=== PATIENT | female | born 1995 | race African-American/Black ===

== ENCOUNTER 2017-06-08 06:50 | Inpatient (IN) | payer OTHER ==
[2017-06-08] MEDS: DEXTROSE 5%-LACTATED RINGERS 1,000 ML IV SCH (07:25)
[2017-06-08] MEDS: OXYTOCIN 20 UNITS in 0.9% NS 20 UNIT/1,000 ML INFUS.BAG IV SCH ×2 (08:00→09:15)
[2017-06-08] MEDS ORDERED: METHYLERGONOVINE MALEATE 0.2 MG/1 ML AMP IM PRN (08:14)
[2017-06-08] MEDS ORDERED: BISACODYL 10 MG SUPP.RECT RC PRN (08:14)
[2017-06-08] MEDS ORDERED: oxyCODONE HCL 5 MG TABLET PO PRN (08:14)
[2017-06-08] MEDS ORDERED: WITCH HAZEL 50% (TUCKS) 40 PAD/JAR PAD TP PRN (08:14)
[2017-06-08] MEDS ORDERED: BENZOCAINE 28 GM HEMORRHOIDAL OINTMENT TP PRN (08:14)
[2017-06-08] MEDS ORDERED: BENZOCAINE 20% 57 GM BOTTLE TP PRN (08:14)
[2017-06-08] MEDS ORDERED: D5W-LR W/ 20 UNITS OXYTOCIN 20 UNIT/1,000 ML INFUS.BAG IV SCH ×2 (08:15→09:30)
--- NOTE | 2017-06-08 08:22 | HP ---
Past Medical History - Primary Care Physician PCP:: Jatin Lizarraga - Admission Chief Complaint: 38 weeks, labor History of Present Illness: 21 yo f , 38 weeks c/o contraction, no rom, no bleeding, cx full 100 vx 0 mi, fhr cat1, contraction q 2 min History Source: Patient Limitations to Obtaining History: No Limitations - Past Medical History ...: 3 ...Para: 1 ...Term: 1 ...: 0 ...Spon : 0 ...Induced : 1 ...EDC by Dates: 06/19/17 ...EDC by Sono: 07/06/17 - Past Surgical History Hx Myomectomy: No Hx Transabdominal Cerclage: No - Smoking History Have you smoked in the past 12 months: No - Alcohol/Substance Use Hx Alcohol Use: No History of Substance Use: reports: None - Social History History of Recent Travel: No Review of Systems - Review of Systems Constitutional: reports: No Symptoms Eyes: reports: No Symptoms HENT: reports: No Symptoms Neck: reports: No Symptoms Cardiovascular: reports: No Symptoms Respiratory: reports: No Symptoms Gastrointestinal: reports: No Symptoms Genitourinary: reports: No Symptoms Breasts: reports: No Symptoms Reported Musculoskeletal: reports: No Symptoms Integumentary: reports: No Symptoms Neurological: reports: No Symptoms Endocrine: reports: No Symptoms Hematology/Lymphatic: reports: No Symptoms Psychiatric: reports: No Symptoms Physical Exam - Maternity Constitutional: Yes: Well Nourished, No Distress, Calm Eyes: Yes: WNL, Conjunctiva Clear, EOM Intact HENT: Yes: WNL, Atraumatic, Normocephalic Neck: Yes: WNL, Supple, Trachea Midline Cardiovascular: Yes: WNL, Regular Rate and Rhythm Breast(s): Yes: WNL - Abdominal Exam/OB Fundal Height: 38 Number of Fetuses: Single Presentation: Vertex Contractions: Yes Regularity: Regular Monitor Mode: External Heart Rate Location: [facility] Category: I Accelerations: Uniform Decelerations: None - Vaginal Exam/OB Vaginal Bleediing: Bloody Show Speculum Exam: No Dilatation (cm): full Effacement (%): 100 Amniotic Membrane Status: Bulging Presentation: Vertex/Position Station: 0 - Physical Exam Musculoskeletal: Yes: WNL Extremities: Yes: WNL Edema: LLE: Trace, RLE: Trace Deep Tendon Reflex Grade: Normal +2 Hemorrhage Risk Assessment - Risk Factors Medium Risk Factors: Yes: None High Risk Factors: Yes: None Risk Score: 1 Risk Level: Medium Risk Problem List - Problems (1) with 38 completed weeks gestation Code(s): Z3A.38 - 38 WEEKS GESTATION OF (2) Labor established Code(s): SYF5408 - Assessment/Plan admit for delivery
[2017-06-08 08:36] VITALS: BMI 24.9
[2017-06-08 08:36] LABS: VENOUS PH 7.36 (7.32-7.42)
[2017-06-08 08:37] LABS: VENOUS BLOOD GAS HCO3 22.8 meq/L (19-25)
[2017-06-08] MEDS ORDERED: OXYTOCIN 20 UNITS in 0.9% NS 20 UNIT/1,000 ML INFUS.BAG IV ONE (08:50)
[2017-06-08] MEDS: IBUPROFEN 600 MG TABLET (FP) PO PRN ×2 (08:52→17:32)
[2017-06-08] MEDS: ACETAMINOPHEN 325 MG TABLET (FP) PO PRN ×3 (08:53→21:39)
[2017-06-08 08:59] LABS: URINE APPEARANCE SLCLOUDY; URINE BILIRUBIN NEGATIVE (NEGATIVE); URINE BLOOD 2+ (NEGATIVE); URINE COLOR STRAW; URINE GLUCOSE (UA) NEGATIVE (NEGATIVE); URINE KETONE NEGATIVE (NEGATIVE); URINE NITRITE NEGATIVE (NEGATIVE); URINE PROTEIN NEGATIVE (NEGATIVE); URINE UROBILINOGEN NEGATIVE mg/dL (0.2-1.0)
[2017-06-08 08:59] LABS: BASOPHIL 0.7 % (0-2.0); EOSINOPHIL 1.1 % (0-4.5); MCH 25.7 pg (25.7-33.7); MCHC 32.8 g/dl (32.0-36.0); MEAN CELL VOLUME 78.3 fl (80-96); MEAN PLT VOLUME 8.1 fl (7.5-11.1); PLATELET COUNT 256 K/MM3 (134-434); RDW 15.5 % (11.6-15.6); WHITE BLOOD COUNT 11.2 K/mm3 (4.0-10.0)
[2017-06-08 09:00] LABS: URINE LEUK ESTERASE 3+ (NEGATIVE)
[2017-06-08 09:02] LABS: URINE BACTERIA RARE /hpf (NONE SEEN); URINE HYALINE CAST 1 /lpf; URINE RBC 4 /hpf (0-3); URINE WBC 25 /hpf (3-5)
[2017-06-08] MEDS ORDERED: AMPICILLIN - 2 GM in SODIUM CHLORIDE 100 ML IVPB ONE (09:18)
[2017-06-08 09:20] LABS: INR 0.96 (0.82-1.09); PROTHROMBIN TIME (PATIENT) 10.8 SEC (9.98-11.88)
[2017-06-08 09:23] LABS: ACTIVATED PTT 27.8 SECONDS (26.9-34.4)
[2017-06-08 09:47] LABS: URINE MARIJUANA THC NEGATIVE ng/ml (CUTOFF=50)
[2017-06-08 09:48] LABS: ANION GAP 9 (8-16); CALCIUM 8.4 mg/dL (8.5-10.1); CO2 24 mmol/L (21-32); CREATININE 0.7 mg/dL (0.55-1.02); GLUCOSE,RANDOM 59 mg/dL (74-106); SGOT/AST 12 U/L (15-37); SGPT/ALT 18 U/L (12-78); URIC ACID 4.9 mg/dL (2.6-7.2)
[2017-06-08] MEDS ORDERED: PRENATAL VITAMINS W/ FOLIC ACID TABLET (FP) PO SCH (10:00)
[2017-06-08] MEDS ORDERED: PATIENT'S OWN MEDICATION (NON-FORMULARY) (Ferrous Sulfate [Feosol] 325 MG) PO SCH (10:00)
[2017-06-08 12:46] LABS: HIV 1 & 2 AB NEGATIVE; HIV 1 AGp24 NEGATIVE
[2017-06-08 14:35] LABS: URINE LEUK ESTERASE 3+ (NEGATIVE)
[2017-06-08] MEDS: FERROUS SO4 325 MG TABLET (FP) PO SCH ×2 (15:41→17:30)
[2017-06-08] MEDS: PRENATAL VITAMINS W/ FOLIC ACID TABLET (FP) PO SCH (16:18)
[2017-06-09 08:02] LABS: BASOPHIL 0.8 % (0-2.0); EOSINOPHIL 2.1 % (0-4.5); MCH 25.9 pg (25.7-33.7); MCHC 33.4 g/dl (32.0-36.0); MEAN CELL VOLUME 77.6 fl (80-96); NEUTROPHILS 73.4 % (42.8-82.8); PLATELET COUNT 239 K/MM3 (134-434); RDW 15.7 % (11.6-15.6); WHITE BLOOD COUNT 11.7 K/mm3 (4.0-10.0)
[2017-06-09] MEDS: PRENATAL VITAMINS W/ FOLIC ACID TABLET (FP) PO SCH (09:39)
[2017-06-09] MEDS: FERROUS SO4 325 MG TABLET (FP) PO SCH ×2 (09:39→18:10)
[2017-06-09] MEDS: IBUPROFEN 600 MG TABLET (FP) PO PRN (09:41)
[2017-06-09] MEDS: ACETAMINOPHEN 325 MG TABLET (FP) PO PRN (09:41)
[2017-06-09] MEDS ORDERED: SENNOSIDES/DOCUSATE COMBO (SENNA PLUS) TABLET (UD) PO PRN (22:00)
--- NOTE | 2017-06-10 08:18 | PN ---
Progress Note (short form) - Note Progress Note: ppd 1 doing well, no c/o CBC, BMP 06/09/17 07:00 06/08/17 08:33 Last Vital Signs Temp Pulse Resp BP Pulse Ox 97.7 F 60 18 138/88 100 06/09/17 21:00 06/09/17 21:00 06/09/17 21:00 06/09/17 21:00 06/08/17 09:00 abdomen soft , no cva, uterus firnm lochia mild no calf tenderness plan d/c home , tc 4 weeks Problem List - Problems (1) with 38 completed weeks gestation Code(s): Z3A.38 - 38 WEEKS GESTATION OF (2) Labor established Code(s): [id number] -
[2017-06-10] MEDS: PRENATAL VITAMINS W/ FOLIC ACID TABLET (FP) PO SCH (09:14)
[2017-06-10] MEDS: FERROUS SO4 325 MG TABLET (FP) PO SCH (09:14)
[2017-06-10 09:44] VITALS: BP 127/80; PULSE 55; TEMP 98.5
[2017-06-10] MEDS: DEXTROSE 5%-LACTATED RINGERS 1,000 ML IV SCH (10:23)
[2017-06-10] MEDS: OXYTOCIN 20 UNITS in 0.9% NS 20 UNIT/1,000 ML INFUS.BAG IV SCH (10:23)
[2017-06-10] MEDS: ACETAMINOPHEN 325 MG TABLET (FP) PO PRN (10:24)
[2017-06-10] MEDS: IBUPROFEN 600 MG TABLET (FP) PO PRN (10:25)
--- NOTE | 2017-06-13 16:21 | DS ---
Physical Exam-JIGSAWYER Vital Signs: Vital Signs Temperature 98.5 F 06/10/17 09:00 Pulse Rate 55 L 06/10/17 09:00 Respiratory Rate 18 06/10/17 09:00 Blood Pressure 127/80 06/10/17 09:00 O2 Sat by Pulse Oximetry (%) 100 06/08/17 09:00 Constitutional: Yes: Well Nourished, No Distress, Calm Eyes: Yes: WNL, Conjunctiva Clear, EOM Intact HENT: Yes: WNL, Atraumatic, Normocephalic Neck: Yes: WNL, Supple, Trachea Midline Cardiovascular: Yes: WNL, Regular Rate and Rhythm Respiratory: Yes: WNL, Regular, CTA Bilaterally Gastrointestinal: Yes: WNL ...Rectal Exam: Yes: WNL Renal/: Yes: WNL ....Post : Yes: Uterus firm, Uterus non-tender, Slight lochia rubra Breast(s): Yes: WNL Musculoskeletal: Yes: WNL Extremities: Yes: WNL Edema: No Integumentary: Yes: WNL Neurological: Yes: WNL, Alert, Oriented ...Motor Strength: WNL Psychiatric: Yes: WNL, Alert, Oriented Labs: CBC, BMP 06/09/17 07:00 06/08/17 08:33 Delivery - Delivery Vaginal Delivery: Spontaneous (no complication) Type of Anesthesia: None Episiotomy/Laceration: None EBL (cc): 300 Delivery, Single - Stages of Labor Date 1st Stage Initiatied: 06/08/17 Time 1st Stage Initiated: 00:00 Date 2nd Stage Initiated: 06/08/17 Time 2nd Stage Initiated: 07:45 Date of Delivery: 06/08/17 Time of Delivery: 07:56 Time Placenta Delivered: 08:00 Placenta: Yes: Spontaneous - Condition of Assistant Store Director/Fast Food Cook Present: No Gender: Male Weight: 4 lb 15 oz Position: Left, OA Total Hours ROM (Hrs/Mins): 0hrs 15min - 1 Minute Total Score: 9 5 Minutes Total Score: 9 - Feeding Plan Initial Plan: Elected not to breastfeed exclusively throughout hospitalization Discharge Summary Reason For Visit: LABOR Procedures: Principal: Condition: Good - Instructions Diet, Activity, Other Instructions: regular diet, no intercourse, follow up [facility] care 4 weeks Disposition: HOME - Home Medications Comprehensive Discharge Medication List: Ambulatory Orders Iron 0 mg PO DAILY 02/20/17 Vit Calc,Iron,Folic [ Vitamins] 1 each PO DAILY 02/20/17 Ferrous Sulfate [Feosol] 325 mg PO DAILY 06/08/17 Vitamins (Sjr) - 1 tab PO DAILY 06/08/17 Ibuprofen [Motrin -] 600 mg PO QID #28 tablet 06/09/17
== END 2017-06-10 14:15 | disposition home or self-care (01) | DRG 560 ==
LOC: JLDR 06:50 → UNDOADMIN 07:30 → JLDR 07:30 → J3W 10:00
PROVIDERS: ADMIT Obstetrics & Gynecology; ATTEND Obstetrics & Gynecology
PROC: 10E0XZZ Delivery of Products of Conception, External Approach (ICD-10-PCS; principal; 2017-06-08)
DX: O80 Encounter for full-term uncomplicated delivery (principal); Z3A.38 38 weeks gestation of pregnancy; Z37.0 Single live birth
CPT/HCPCS: 36415; 59409; 80048; 80307; 81003; 81015; 82803; 82977; 83010; 84450; 84460; 84550; 85025; 85044; 85610; 85730; 86593; 86850; 86900; 86901; 87389

== ENCOUNTER 2018-08-03 15:33 | Emergency (ER) | payer OTHER ==
[2018-08-03 16:01] VITALS: BMI 25.3
--- NOTE | 2018-08-03 16:56 | PDOC ---
History of Present Illness - General Chief Complaint: Pain Stated Complaint: ABD PAIN / BACK PAIN Time Seen by Provider: 08/03/18 16:56 History Source: Patient Exam Limitations: No Limitations - History of Present Illness Initial Comments: 08/03/18 17:40 23 yo F w/ no sig PMHx comes in c/o diffuse lower abdominal pain, low back pain and rectal pain since yesterday. Also c/o pain on urination, no burning, no frequency/urgency. LMP 1 week ago. Denies yellow-green vaginal discharge, only mild clear discharge, denies STD suspicion, sexually active with her only.. (+)constipation, does not remember her last bowel movement. No h/o abdominal surgery. No fever/chills, no NVD, no known sick contacts, no recent travel. No prior h/o similar symptoms. Pt did not take any meds at home. 08/03/18 17:45 08/03/18 19:13 Past History - Past Medical History Allergies/Adverse Reactions: Allergies Allergy/AdvReac Type Severity Reaction Status Date / Time No Known Allergies Allergy Verified 08/03/18 16:01 Home Medications: Ambulatory Orders NK [No Known Home Medication] 08/03/18 Asthma: No Cancer: No Cardiac Disorders: No COPD: No Diabetes: No HTN: No Seizures: No Thyroid Disease: No - Reproductive History (#): 2 Para: 1 - Suicide/Smoking/Psychosocial Hx Smoking History: Never smoked Have you smoked in the past 12 months: No Number of Cigarettes Smoked Daily: 0 Hx Alcohol Use: No Drug/Substance Use Hx: Yes Substance Use Type: Marijuana Hx Substance Use Treatment: No Review of Systems - Review of Systems Able to Perform ROS?: Yes Constitutional: No: Chills, Fever, Malaise, Night Sweats HEENTM: No: Eye Pain, Recent change in vision, Throat Pain Respiratory: No: Cough, Shortness of Breath Cardiac (ROS): No: Chest Pain, Palpitations, Chest Tightness ABD/GI: Yes: Abdominal cramping. No: Diarrhea, Nausea, Vomiting : No: Dysuria, Hematuria Musculoskeletal: No: Back Pain Integumentary: No: Rash Neurological: No: Headache, Numbness, Dizziness Psychiatric: No: Change in Appetite Endocrine: No: Unexplained Weight Loss *Physical Exam - Vital Signs Last Vital Signs Temp Pulse Resp BP Pulse Ox 100.2 F H 66 18 109/76 99 08/03/18 15:59 08/03/18 15:59 08/03/18 15:59 08/03/18 15:59 08/03/18 15:59 - Physical Exam General Appearance: Yes: Nourished. No: Apparent Distress HEENT: positive: JACQUES, Normal ENT Inspection, Normal Voice. negative: Pale Conjunctivae, Scleral Icterus (R), Scleral Icterus (L) Neck: positive: Supple. negative: Decreased range of motion, Tender midline Respiratory/Chest: positive: Lungs Clear, Normal Breath Sounds. negative: Respiratory Distress, Accessory Muscle Use Cardiovascular: positive: Regular Rhythm, Regular Rate Female Pelvic Exam: positive: discharge (mild yellowish), adnexal tenderness ( bilateral, L>R). negative: CMT Gastrointestinal/Abdominal: positive: Normal Bowel Sounds, Tender ((+)diffuse lower abdominal tenderness, no tenderness at McBurney's point, (-)Psoas sign, (- )Rosving sign, no CVA tenderness), Soft Rectal Exam: positive: normal exam. negative: hemorrhoids Musculoskeletal: positive: Normal Inspection. negative: CVA Tenderness, Decreased Range of Motion Extremity: positive: Normal Capillary Refill, Normal Inspection, Normal Range of Motion. negative: Tender, Pedal Edema Integumentary: positive: Normal Color, Dry. negative: Jaundice, Rash Neurologic: positive: Fully Oriented, Alert, Normal Mood/Affect Moderate Sedation - Procedure Monitoring Vital Signs: Procedure Monitoring Vital Signs Temperature 100.2 F H 08/03/18 15:59 Pulse Rate 66 08/03/18 15:59 Respiratory Rate 18 08/03/18 15:59 Blood Pressure 109/76 08/03/18 15:59 O2 Sat by Pulse Oximetry (%) 99 08/03/18 15:59 ED Treatment Course - LABORATORY CBC & Chemistry Diagram: 08/03/18 17:12 08/03/18 17:13 Medical Decision Making - Medical Decision Making 08/03/18 17:47 23 yo F w/ diffuse lower abdominal pain, back pain, rectal pain, pain on urination (+)constipation. Also w/ L adnexal tenderness on exam. WIll check UA, UCG, will do basic labs, do a flat and upright abdomen , transvaginal sono R/O cyst and reassess. WIll give IV fluids and tylenol for pain. Urine sent for GC/CT 08/03/18 18:51 08/03/18 19:44 Change of shift, care of patient now being assumed by VERONICA Barajas. (+)UTI, pending FUAxray and sono results *DC/Admit/Observation/Transfer Diagnosis at time of Disposition: Urinary tract infection Qualifiers: Urinary tract infection type: acute cystitis Hematuria presence: without hematuria Qualified Code(s): N30.00 - Acute cystitis without hematuria - Referrals - Patient Instructions - Post Discharge Activity
[2018-08-03 18:08] LABS: BASO % 0.4 % (0-2.0); EOS % 0.1 % (0-4.5); HEMATOCRIT 37.9 % (32.4-45.2); HEMOGLOBIN 13.1 GM/dL (10.7-15.3); LYMPH % 6.2 % (8-40); MCH 27.1 pg (25.7-33.7); MCHC 34.6 g/dl (32.0-36.0); MEAN CELL VOLUME 78.3 fl (80-96); NEUT % 87.3 % (42.8-82.8); PLATELET COUNT 283 K/MM3 (134-434); RBC 4.84 M/mm3 (3.60-5.2); RDW 15.7 % (11.6-15.6); WHITE BLOOD COUNT 18.9 K/mm3 (4.0-10.0)
[2018-08-03 18:09] LABS: HCG,QUALITATIVE URINE Negative
[2018-08-03 18:13] LABS: URINE APPEARANCE SLCLOUDY; URINE BILIRUBIN NEGATIVE (<2.0 mg/dL); URINE COLOR YELLOW; URINE GLUCOSE (UA) NEGATIVE (NEGATIVE); URINE KETONE NEGATIVE (NEGATIVE); URINE LEUK ESTERASE 3+ (NEGATIVE); URINE NITRITE NEGATIVE (NEGATIVE); URINE PROTEIN 1+ (NEGATIVE); URINE UROBILINOGEN NEGATIVE mg/dL (0.2-1.0)
[2018-08-03 18:19] LABS: EPI CELLS MODERATE /HPF (FEW); URINE BACTERIA RARE /hpf (NONE SEEN); URINE MUCUS FEW
[2018-08-03 18:41] LABS: ALBUMIN 3.9 g/dl (3.4-5.0); ALK PHOS 102 U/L (45-117); ANION GAP 10 MMOL/L (8-16); BILIRUBIN,TOTAL 0.8 mg/dL (0.2-1); BLOOD UREA NITROGEN 11 mg/dL (7-18); CHLORIDE 105 mmol/L (98-107); CO2 25 mmol/L (21-32); CREATININE 0.9 mg/dL (0.55-1.3); GLUCOSE,RANDOM 95 mg/dL (74-106); LIPASE 81 U/L (73-393); POTASSIUM 3.9 mmol/L (3.5-5.1); SGOT/AST 14 U/L (15-37); SGPT/ALT 19 U/L (13-61); SODIUM 140 mmol/L (136-145)
[2018-08-03] MEDS ORDERED: CEFTRIAXONE 1,000 MG in DEXTROSE 5%-WATER - 50 ML IVPB ONE (20:00)
[2018-08-03] MEDS ORDERED: PHENAZOPYRIDINE HCL 100 MG TABLET (FP) PO ONE (20:04)
[2018-08-03] MEDS ORDERED: KETOROLAC TROMETHAMINE 30 MG/1 ML VIAL IVPUSH ONE (20:05)
[2018-08-03] MEDS ORDERED: KETOROLAC TROMETHAMINE 30 MG/1 ML VIAL ONE (20:11)
[2018-08-03] MEDS ORDERED: PHENAZOPYRIDINE HCL 100 MG TABLET (FP) ONE (20:11)
[2018-08-03] MEDS ORDERED: CEFTRIAXONE 1 GM/50 ML BAG ONE (20:12)
--- NOTE | 2018-08-03 20:28 | PDOC ---
*Physical Exam - Vital Signs Last Vital Signs Temp Pulse Resp BP Pulse Ox 99.5 F 60 18 121/69 99 08/03/18 20:23 08/03/18 20:23 08/03/18 20:23 08/03/18 20:23 08/03/18 20:23 ED Treatment Course - LABORATORY CBC & Chemistry Diagram: 08/03/18 20:55 08/03/18 17:13 - ADDITIONAL ORDERS Additional order review: Laboratory Results 08/03/18 08/03/18 17:53 17:13 Sodium 140 Potassium 3.9 Chloride 105 Carbon Dioxide 25 Anion Gap 10 BUN 11 Creatinine 0.9 Creat Clearance w eGFR > 60 Random Glucose 95 Calcium 9.0 Total Bilirubin 0.8 AST 14 L ALT 19 Alkaline Phosphatase 102 Total Protein 8.0 Albumin 3.9 Lipase 81 Beta HCG, Quant < 1.0 Urine Color Yellow Urine Appearance Slcloudy Urine pH 6.0 Ur Specific [place] 1.020 Urine Protein 1+ H Urine Glucose (UA) Negative Urine Ketones Negative Urine Blood Negative Urine Nitrite Negative Urine Bilirubin Negative Urine Urobilinogen Negative Ur Leukocyte Esterase 3+ H Urine WBC (Auto) 20 Urine RBC (Auto) 10 Ur Epithelial Cells Moderate Urine Bacteria Rare Urine Mucus Few Urine HCG, Qual Negative 08/03/18 17:12 RBC 4.84 MCV 78.3 L MCHC 34.6 RDW 15.7 H MPV 9.0 D Neutrophils % 87.3 H Lymphocytes % 6.2 L D Monocytes % 6.0 Eosinophils % 0.1 D Basophils % 0.4 - Medications Given in the ED: ED Medications Discontinued Medications Generic Name Dose Route Start Last Admin Trade Name Rogelio PRN Reason Stop Dose Admin Ketorolac Tromethamine 30 mg 08/03/18 20:05 08/03/18 20:23 Toradol Injection - IVPUSH 08/03/18 20:06 30 mg ONCE ONE Administration Phenazopyridine HCl 200 mg 08/03/18 20:04 08/03/18 20:22 Pyridium - PO 08/03/18 20:05 200 mg ONCE ONE Administration Medical Decision Making - Medical Decision Making 08/03/18 20:28 Patient Name: TANIA CAMERON THIS IS A PRELIMINARY REPORT FROM [facility] DATE OF SERVICE: 2018-08-03 19:22:52 IMAGES: 50 EXAM: Transvaginal pelvic ultrasound and ovarian duplex REASON FOR EXAM: Left adnexal tenderness COMPARISON: None. FINDINGS: Uterine dimensions are 7.6 x 4.6 x 4.2 cm. Endometrial stripe is normal in thickness measuring 0.7cm. Ovary dimensions are 3.5 x 2.2 x 2.4 cm for the right ovary and 2.9 x 1.4 x 1.8 cm for the left ovary. There is intact blood flow demonstrated to the ovaries. Arterial and venous spectral waveforms demonstrated. There is no evidence of torsion. There is a 1.3 cm right ovarian cyst. There is an additional 1.0 cm left ovarian cyst. There are subcentimeter ovarian follicles bilaterally. There is no free fluid. 08/03/18 20:55 Pt has RLQ pain; she has rebound. SHe has suprapubic pain. She had a temp in the ER. She will be sent for a CT abd/pelvis with IV contrast to r/o appy I sent a repeat CBC to see where the WBC is going, 08/03/18 20:56 Also NSS bolus placed 08/03/18 23:05 Patient Name: TANIA CAMERON THIS IS A PRELIMINARY REPORT FROM [facility] DATE OF SERVICE: 2018-08-03 21:48:01 IMAGES: [id number] EXAM: CT abdomen/pelvis with contrast HISTORY: Rule out appendicitis COMPARISON: None. FINDINGS: The appendix is not very well seen. Visualized portion appears to be within normal limits in size. There is no right lower quadrant inflammatory process seen. No evidence on this examination for acute appendicitis. No free air No obvious gallstones There is no hydronephrosis. There is moderate stool noted in the colon. There is no evidence of intestinal obstruction. Urinary bladder is partially decompressed. There are no bladder calculi. *DC/Admit/Observation/Transfer Diagnosis at time of Disposition: Urinary tract infection Qualifiers: Urinary tract infection type: acute cystitis Hematuria presence: without hematuria Qualified Code(s): N30.00 - Acute cystitis without hematuria - Discharge Dispostion Disposition: HOME Condition at time of disposition: Stable - Prescriptions Prescriptions: Cephalexin [Keflex] 500 mg PO TID #20 capsule Ibuprofen [Motrin -] 600 mg PO QID #28 tablet Phenazopyridine HCl [Pyridium] 100 mg PO TID #6 tablet - Referrals Ref[place]: [facility] [place] [Provider Group] - Patient Instructions Printed Discharge Instructions: DI for Urinary Tract Infection (UTI) Additional Instructions: Your Discharge Instructions: You must call primary care physician within 24 hours to arrange follow-up. Return to the Emergency Department with any new, persistent or worsening symptoms, for fever, chills, SOB, dizziness or any other concerning changes that may occur. - Post Discharge Activity
[2018-08-03] MEDS ORDERED: SODIUM CHLORIDE 0.9% 500 ML INFUS.BAG IV ONE (20:29)
--- NOTE | 2018-08-03 20:36 | PDOC ---
*Physical Exam - Vital Signs Last Vital Signs Temp Pulse Resp BP Pulse Ox 99.5 F 60 18 121/69 99 08/03/18 20:23 08/03/18 20:23 08/03/18 20:23 08/03/18 20:23 08/03/18 20:23 ED Treatment Course - LABORATORY CBC & Chemistry Diagram: 08/03/18 17:12 08/03/18 17:13 - ADDITIONAL ORDERS Additional order review: Laboratory Results 08/03/18 08/03/18 17:53 17:13 Sodium 140 Potassium 3.9 Chloride 105 Carbon Dioxide 25 Anion Gap 10 BUN 11 Creatinine 0.9 Creat Clearance w eGFR > 60 Random Glucose 95 Calcium 9.0 Total Bilirubin 0.8 AST 14 L ALT 19 Alkaline Phosphatase 102 Total Protein 8.0 Albumin 3.9 Lipase 81 Beta HCG, Quant < 1.0 Urine Color Yellow Urine Appearance Slcloudy Urine pH 6.0 Ur Specific [place] 1.020 Urine Protein 1+ H Urine Glucose (UA) Negative Urine Ketones Negative Urine Blood Negative Urine Nitrite Negative Urine Bilirubin Negative Urine Urobilinogen Negative Ur Leukocyte Esterase 3+ H Urine WBC (Auto) 20 Urine RBC (Auto) 10 Ur Epithelial Cells Moderate Urine Bacteria Rare Urine Mucus Few Urine HCG, Qual Negative 08/03/18 17:12 RBC 4.84 MCV 78.3 L MCHC 34.6 RDW 15.7 H MPV 9.0 D Neutrophils % 87.3 H Lymphocytes % 6.2 L D Monocytes % 6.0 Eosinophils % 0.1 D Basophils % 0.4 - Medications Given in the ED: ED Medications Discontinued Medications Generic Name Dose Route Start Last Admin Trade Name Rogelio PRN Reason Stop Dose Admin Ketorolac Tromethamine 30 mg 08/03/18 20:05 08/03/18 20:23 Toradol Injection - IVPUSH 08/03/18 20:06 30 mg ONCE ONE Administration Phenazopyridine HCl 200 mg 08/03/18 20:04 08/03/18 20:22 Pyridium - PO 08/03/18 20:05 200 mg ONCE ONE Administration Medical Decision Making - Medical Decision Making 08/03/18 20:26 Patient endorsed to me to follow labs and ultrasound. Patient still complains of left-sided abdominal pain, however back pain is resolved.. LAbs reviewed noted to have a UTI will give Rocephin 1 g IV in the ER and a prescription for her pharmacy of Keflex. Cultures were sent by VERONICA Wilson Also given Pyridium 200 mg by mouth and Toradol 30 mg IV. Patient Full Name: NISHA MARIN Patient Accession No: [id number] Patient : 1995 Reason for Exam: lt adnexal tenderness r/o ruptured cyst Referring Physician: ROGELIO CARVAJAL Patient Name: TANIA CAMERON THIS IS A PRELIMINARY REPORT FROM [facility] DATE OF SERVICE: 2018-08-03 19:22:52 IMAGES: 50 EXAM: Transvaginal pelvic ultrasound and ovarian duplex REASON FOR EXAM: Left adnexal tenderness COMPARISON: None. FINDINGS: Uterine dimensions are 7.6 x 4.6 x 4.2 cm. Endometrial stripe is normal in thickness measuring 0.7cm. Ovary dimensions are 3.5 x 2.2 x 2.4 cm for the right ovary and 2.9 x 1.4 x 1.8 cm for the left ovary. There is intact blood flow demonstrated to the ovaries. Arterial and venous spectral waveforms demonstrated. There is no evidence of torsion. There is a 1.3 cm right ovarian cyst. There is an additional 1.0 cm left ovarian cyst. There are subcentimeter ovarian follicles bilaterally. There is no free fluid. THIS DOCUMENT HAS BEEN ELECTRONICALLY SIGNED Toñito Riley MD 08/03/2018 20:22 WILTON Mccarty Please call Imaging Digital Media Coordinator [phone] with questions. INTERPRETING RADIOLOGIST: Toñito Riley MD Electronically Signed: Aug 03, 2018 08:23PM EST 08/03/18 20:29 Selected Entries 08/03/18 20:23 Temperature 99.5 F Pulse Rate [ 60 Left Radial] Respiratory 18 Rate Blood Pressure 121/69 [Right Arm] O2 Sat by Pulse 99 Oximetry (%) I discussed the physical exam findings, ancillary test results and final diagnoses with the patient. I answered all of the patient's questions. The patient was satisfied with the care received and felt comfortable with the discharge plan and treatment plan. The Patient agrees to follow up with the primary care physician within 24-72 hours. *DC/Admit/Observation/Transfer Diagnosis at time of Disposition: Urinary tract infection Qualifiers: Urinary tract infection type: acute cystitis Hematuria presence: without hematuria Qualified Code(s): N30.00 - Acute cystitis without hematuria - Discharge Dispostion Disposition: HOME Condition at time of disposition: Stable - Referrals Referrals: [facility] [place] [facility] [place] [Provider Group] - Patient Instructions Printed Discharge Instructions: DI for Urinary Tract Infection (UTI) Additional Instructions: Your Discharge Instructions: You must call primary care physician within 24 hours to arrange follow-up. Return to the Emergency Department with any new, persistent or worsening symptoms, for fever, chills, SOB, dizziness or any other concerning changes that may occur. - Post Discharge Activity
[2018-08-03 21:03] LABS: BASO % 0.5 % (0-2.0); EOS % 0.1 % (0-4.5); HEMATOCRIT 37.1 % (32.4-45.2); HEMOGLOBIN 12.7 GM/dL (10.7-15.3); LYMPH % 8.3 % (8-40); MCH 26.8 pg (25.7-33.7); MCHC 34.1 g/dl (32.0-36.0); MEAN CELL VOLUME 78.5 fl (80-96); MEAN PLT VOLUME 8.8 fl (7.5-11.1); NEUT % 84.1 % (42.8-82.8); PLATELET COUNT 265 K/MM3 (134-434); RBC 4.72 M/mm3 (3.60-5.2); RDW 15.6 % (11.6-15.6); WHITE BLOOD COUNT 19.7 K/mm3 (4.0-10.0)
--- NOTE | 2018-08-03 22:18 | PDOC ---
*Physical Exam - Vital Signs Last Vital Signs Temp Pulse Resp BP Pulse Ox 99.5 F 60 18 121/69 99 08/03/18 20:23 08/03/18 20:23 08/03/18 20:23 08/03/18 20:23 08/03/18 20:23 ED Treatment Course - LABORATORY CBC & Chemistry Diagram: 08/03/18 20:55 08/03/18 17:13 - ADDITIONAL ORDERS Additional order review: Laboratory Results 08/03/18 08/03/18 17:53 17:13 Sodium 140 Potassium 3.9 Chloride 105 Carbon Dioxide 25 Anion Gap 10 BUN 11 Creatinine 0.9 Creat Clearance w eGFR > 60 Random Glucose 95 Calcium 9.0 Total Bilirubin 0.8 AST 14 L ALT 19 Alkaline Phosphatase 102 Total Protein 8.0 Albumin 3.9 Lipase 81 Beta HCG, Quant < 1.0 Urine Color Yellow Urine Appearance Slcloudy Urine pH 6.0 Ur Specific [place] 1.020 Urine Protein 1+ H Urine Glucose (UA) Negative Urine Ketones Negative Urine Blood Negative Urine Nitrite Negative Urine Bilirubin Negative Urine Urobilinogen Negative Ur Leukocyte Esterase 3+ H Urine WBC (Auto) 20 Urine RBC (Auto) 10 Ur Epithelial Cells Moderate Urine Bacteria Rare Urine Mucus Few Urine HCG, Qual Negative 08/03/18 08/03/18 20:55 17:12 RBC 4.72 4.84 MCV 78.5 L 78.3 L MCHC 34.1 34.6 RDW 15.6 15.7 H MPV 8.8 9.0 D Neutrophils % 84.1 H 87.3 H Lymphocytes % 8.3 D 6.2 L D Monocytes % 7.0 6.0 Eosinophils % 0.1 0.1 D Basophils % 0.5 0.4 - Medications Given in the ED: ED Medications Discontinued Medications Generic Name Dose Route Start Last Admin Trade Name Freq PRN Reason Stop Dose Admin Ceftriaxone Sodium 1,000 mg/ 50 mls @ 100 mls/hr 08/03/18 20:00 08/03/18 20: 23 Dextrose IVPB 08/03/18 20:29 100 mls/hr ONCE ONE Administration Ketorolac Tromethamine 30 mg 08/03/18 20:05 08/03/18 20:23 Toradol Injection - IVPUSH 08/03/18 20:06 30 mg ONCE ONE Administration Phenazopyridine HCl 200 mg 08/03/18 20:04 08/03/18 20:22 Pyridium - PO 08/03/18 20:05 200 mg ONCE ONE Administration Sodium Chloride 1,000 ml 08/03/18 20:29 08/03/18 20:57 Normal Saline - IV 08/03/18 20:30 1,000 ml ONCE ONE Administration Medical Decision Making - Medical Decision Making 08/03/18 22:17 Patient was reexamined by Dr. Horowitz, recommends a CT scan of the abdomen to rule out appendectomy in light of the 18,000 white count. Patient Accession No: [id number] Patient : 1995 Reason for Exam: r/o appy Referring Physician: ROBIN BROWN Patient Name: TANIA CAMERON THIS IS A PRELIMINARY REPORT FROM [facility] DATE OF SERVICE: 2018-08-03 21:48:01 IMAGES: 392 EXAM: CT abdomen/pelvis with contrast HISTORY: Rule out appendicitis COMPARISON: None. FINDINGS: The appendix is not very well seen. Visualized portion appears to be within normal limits in size. There is no right lower quadrant inflammatory process seen. No evidence on this examination for acute appendicitis. No free air No obvious gallstones There is no hydronephrosis. There is moderate stool noted in the colon. There is no evidence of intestinal obstruction. Urinary bladder is partially decompressed. There are no bladder calculi. One or more of the following dose reduction techniques were used: automated exposure control, adjustment of the mA and/or kV according to patient size, use of iterative reconstructive technique. THIS DOCUMENT HAS BEEN ELECTRONICALLY SIGNED Toñito Riley MD 08/03/2018 22:13 WILTON Mccarty Please call Imaging Ocean Export Agent [phone] with questions. INTERPRETING RADIOLOGIST: Toñito Riley MD Electronically Signed: Aug 03, 2018 10:14PM EST *DC/Admit/Observation/Transfer Diagnosis at time of Disposition: Urinary tract infection Qualifiers: Urinary tract infection type: acute cystitis Hematuria presence: without hematuria Qualified Code(s): N30.00 - Acute cystitis without hematuria - Discharge Dispostion Disposition: HOME Condition at time of disposition: Stable - Prescriptions Prescriptions: Cephalexin [Keflex] 500 mg PO TID #20 capsule Ibuprofen [Motrin -] 600 mg PO QID #28 tablet Phenazopyridine HCl [Pyridium] 100 mg PO TID #6 tablet - Referrals Referrals: [facility] [place] [Provider Group] - Patient Instructions Printed Discharge Instructions: DI for Urinary Tract Infection (UTI) Additional Instructions: Your Discharge Instructions: You must call primary care physician within 24 hours to arrange follow-up. Return to the Emergency Department with any new, persistent or worsening symptoms, for fever, chills, SOB, dizziness or any other concerning changes that may occur. - Post Discharge Activity
[2018-08-03 23:39] VITALS: BP 125/77; PULSE 66; TEMP 97.8
== END 2018-08-03 23:38 | disposition home or self-care (01) ==
LOC: JER 15:33
PROC: 3E03329 Introduction of Other Anti-infective into Peripheral Vein, Percutaneous Approach (ICD-10-PCS; principal; 2018-08-03)
PROC: 3E0333Z Introduction of Anti-inflammatory into Peripheral Vein, Percutaneous Approach (ICD-10-PCS; 2018-08-03)
DX: N30.00 Acute cystitis without hematuria (principal); N83.201 Unspecified ovarian cyst, right side; N83.202 Unspecified ovarian cyst, left side
CPT/HCPCS: 36415; 74019-TC-FY; 74177-TC; 76830-TC; 80053; 81003; 81015; 83690; 84702; 84703; 85025; 87086; 87186; 87491; 87591; 99283-25

== ENCOUNTER 2019-03-05 16:45 | Emergency (ER) | payer OTHER ==
[2019-03-05 16:57] VITALS: BP 108/59; PULSE 60; TEMP 98.6; BMI 24.0
--- NOTE | 2019-03-05 16:58 | PDOC ---
Rapid Medical Evaluation Chief Complaint: Rash Time Seen by Provider: 03/05/19 16:55 Medical Evaluation: Allergies Allergy/AdvReac Type Severity Reaction Status Date / Time No Known Allergies Allergy Verified 08/03/18 16:01 03/05/19 16:55 I have performed a brief in-person evaluation of this patient. The patient presents with a chief complaint of: blister to right index finger- 5 months . Pertinent physical exam findings: no focal findings I have ordered the following: nothing The patient will proceed to the ED for further evaluation. Discharge Disposition - Diagnosis Blister of finger - Referrals - Patient Instructions - Post Discharge Activity
--- NOTE | 2019-03-05 17:27 | PDOC ---
History of Present Illness - General Chief Complaint: Rash Stated Complaint: 5 MONTH PREG. THROBBING, INJURY TO FINGER Time Seen by Provider: 03/05/19 16:55 - History of Present Illness Initial Comments: 03/05/19 17:23 CHIEF COMPLAINT: bumps to R hand HISTORY OF PRESENT ILLNESS: 23 yo 20 week F presents to fast track with bumps to R hand that she noticed this morning. Patient reports that she popped the bumps and "pus came out", but then she felt that her hand was warm and swollen so she came in for evaluation because she was concerned "it would affect the baby." Patient does not remember LMP. No recent travel or sick contacts. PAST MEDICAL HISTORY: Denies past medical history FAMILY HISTORY: Denies SOCIAL HISTORY: Denies tobacco, alcohol, illicit drug use. SURGICAL HISTORY: Denies ALLERGIES: No known drug allergies REVIEW OF SYSTEMS General/Constitutional: Denies fever or chills. Denies weakness, weight change. HEENT: Denies change in vision. Denies ear pain or discharge. Denies sore throat. Cardiovascular: Denies chest pain or shortness of breath. Respiratory: Denies cough, wheezing, or hemoptysis. Gastrointestinal: Denies nausea, vomiting, diarrhea or constipation. Denies rectal bleeding. Genitourinary: Denies dysuria, frequency, or change in urination. Musculoskeletal: Denies joint or muscle swelling or pain. Denies neck or back pain. Skin and breasts: "I have these bumps on my right hand that I popped this morning." Denies rash or easy bruising. Neurologic: Denies headache, vertigo, loss of consciousness, or loss of sensation. PHYSICAL EXAM General Appearance: Well-appearing, appropriately dressed. No apparent distress , no intoxication. HEENT: EOMI, PERRLA, normal ENT inspection, normal voice, TMs normal, pharynx normal. No conjunctival pallor. No photophobia, scleral icterus. Neck: Supple. Trachea midline. No tenderness, rigidity, carotid bruit, stridor , lymphadenopathy, or thyromegaly. Respiratory/Chest: Lungs CTAB. No shortness of breath, chest tenderness, respiratory distress, accessory muscle use. No crackles, rales, rhonchi, stridor , wheezing, dullness Cardiovascular: RRR. S1, S2. No JVD, murmur, bradycardia, tachycardia. Vascular Pulses: Dorsalis-Pedis (R): 2+, Dorsalis-Pedis (L): 2+ Gastrointestinal/Abdominal: Normal bowel sounds. Abdomen soft, non-distended. No tenderness or rebound tenderness. No organomegaly, pulsatile mass, guarding , hernia, hepatomegaly, splenomegaly. Lymphatic: No adenopathy, tenderness. Musculoskeletal/Extremities: Normal inspection. FROM of all extremities, normal capillary refill. Pelvis Stable. No CVA tenderness. No tenderness to extremities, pedal edema, swelling, erythema or deformity. Integumentary: Two small drained papules to dorsal aspect of R index finger approximately 0.5cm in size. Warmth and erythema to base of R index finger and R hand. Appropriate color, dry, warm. No cyanosis, jaundice or rash Neurologic: evs tech II-XII intact. Fully oriented, alert. Appropriate mood/affect. Motor strength 5/5. No appreciable EOM palsy, facial droop or sensory deficit. Past History - Past Medical History Allergies/Adverse Reactions: Allergies Allergy/AdvReac Type Severity Reaction Status Date / Time No Known Allergies Allergy Verified 03/05/19 16:56 Home Medications: Ambulatory Orders Cephalexin [Keflex] 500 mg PO TID #20 capsule 08/03/18 Ibuprofen [Motrin -] 600 mg PO QID #28 tablet 08/03/18 Phenazopyridine HCl [Pyridium] 100 mg PO TID #6 tablet 08/03/18 Azithromycin 1 gm PO 1XPACU #1 packet 08/11/18 Cephalexin [Keflex] 500 mg PO BID #20 capsule 03/05/19 Asthma: No Cancer: No Cardiac Disorders: No COPD: No Diabetes: No HTN: No Seizures: No Thyroid Disease: No - Reproductive History (#): 2 Para: 1 - Suicide/Smoking/Psychosocial Hx Smoking History: Never smoked Have you smoked in the past 12 months: No Number of Cigarettes Smoked Daily: 0 Information on smoking cessation initiated: No Hx Alcohol Use: No Drug/Substance Use Hx: No Substance Use Type: Marijuana Hx Substance Use Treatment: No *Physical Exam - Vital Signs Last Vital Signs Temp Pulse Resp BP Pulse Ox 98.6 F 60 18 108/59 L 100 03/05/19 16:54 03/05/19 16:54 03/05/19 16:54 03/05/19 16:54 03/05/19 16:54 ED Treatment Course - RADIOLOGY Radiology Studies Ordered: Category Date Time Status HAND- RIGHT [RAD] Stat Radiology 03/05/19 17:22 Ordered Medical Decision Making - Medical Decision Making 03/05/19 17:29 23 yo 20 week F presents to fast track with bumps to R hand that she noticed this morning. -x-ray eval underlying soft tissue gas vs osteo -L&D for evaluation as patient states "baby has been moving around a lot" 03/05/19 17:45 xray negative. Keflex rx sent to pharm Advised patient to take medication as prescribed. Advised patient of signs and symptoms for return to ED. Patient verbalized understanding and agrees to plan. Patient sent to L&D for OB clearance as patient has concerns regarding her . *DC/Admit/Observation/Transfer Diagnosis at time of Disposition: Blister of finger Qualifiers: Encounter type: initial encounter Qualified Code(s): S60.429A - Blister ( nonthermal) of unspecified finger, initial encounter - Discharge Dispostion Disposition: HOME Condition at time of disposition: Stable Decision to Admit order: No - Prescriptions Prescriptions: Cephalexin [Keflex] 500 mg PO BID #20 capsule - Referrals Referrals: Caroline yWnn MD [Primary Care Provider] - - Patient Instructions Printed Discharge Instructions: DI for Skin Abscess Additional Instructions: Please take medication as prescribed; complete the entire course of antibiotics even if symptoms improve. If you develop any new or worsening symptoms, please return to the ER. - Post Discharge Activity
== END 2019-03-05 18:26 | disposition home or self-care (01) ==
LOC: JER 16:45 → JERFT 16:45 → JER 18:26
DX: O26.892 Other specified pregnancy related conditions, second trimester (principal); S60.420A Blister (nonthermal) of right index finger, initial encounter
CPT/HCPCS: 73130-TC-RT-FY; 99281-25

== ENCOUNTER 2019-06-26 08:13 | Inpatient (IN) | payer OTHER ==
[2019-06-26] MEDS ORDERED: LIDOCAINE HCL 1% PRESERVATIVE FREE - 30ML VIAL ONE (08:28)
[2019-06-26] MEDS ORDERED: OXYTOCIN 20 UNITS in 0.9% NS 20 UNIT/1,000 ML INFUS.BAG IV ONE ×2 (08:28→10:07)
[2019-06-26] MEDS ORDERED: BENZOCAINE 20% 57 GM BOTTLE TP PRN (08:55)
[2019-06-26] MEDS ORDERED: WITCH HAZEL 50% (TUCKS) 40 PAD/JAR PAD TP PRN (08:55)
[2019-06-26] MEDS ORDERED: BISACODYL 10 MG SUPP.RECT RC PRN (08:55)
[2019-06-26] MEDS ORDERED: BENZOCAINE 28 GM HEMORRHOIDAL OINTMENT TP PRN (08:55)
[2019-06-26] MEDS ORDERED: METHYLERGONOVINE MALEATE 0.2 MG/1 ML AMP IM PRN (08:55)
--- NOTE | 2019-06-26 08:59 | HP ---
Past Medical History - Primary Care Physician PCP:: Jatin Lizarraga - Admission Chief Complaint: 37 weeks, labor History of Present Illness: 23 yo f ,edc 07/16/18 , 37 weeks, labor , cx full 100 vx 0 mi, fhr cat 1 , regular contraction, pushing. care at [facility] History Source: Patient Limitations to Obtaining History: No Limitations - Past Medical History ...: 4 ...Para: 2 ...Term: 2 ...: 0 ...Spon : 2 ...EDC by [facility]: 07/16/19 Heme/Onc: Yes: Anemia - Past Surgical History Past Surgical History: Yes: None Hx Myomectomy: No Hx Transabdominal Cerclage: No - Smoking History Smoking history: Never smoked Have you smoked in the past 12 months: No Aproximately how many cigarettes per day: 0 - Alcohol/Substance Use Hx Alcohol Use: No History of Substance Use: reports: None - Social History History of Recent Travel: No Home Medications - Allergies Allergies/Adverse Reactions: Allergies Allergy/AdvReac Type Severity Reaction Status Date / Time No Known Allergies Allergy Verified 06/26/19 09:49 - Home Medications Home Medications: Ambulatory Orders Vitamins (Sjr) - 1 tab PO DAILY 06/21/19 Review of Systems - Review of Systems Constitutional: reports: No Symptoms Eyes: reports: No Symptoms HENT: reports: No Symptoms Neck: reports: No Symptoms Cardiovascular: reports: No Symptoms Respiratory: reports: No Symptoms Gastrointestinal: reports: No Symptoms Genitourinary: reports: No Symptoms Breasts: reports: No Symptoms Reported Musculoskeletal: reports: No Symptoms Integumentary: reports: No Symptoms Neurological: reports: No Symptoms Endocrine: reports: No Symptoms Hematology/Lymphatic: reports: No Symptoms Psychiatric: reports: No Symptoms Physical Exam - Maternity - Abdominal Exam/OB Fundal Height: 38 Number of Fetuses: Single Presentation: Vertex Contractions: Yes Regularity: Regular Intensity: Strong Monitor Mode: External Heart Rate Location: [facility] Category: I Accelerations: Non-Uniform Decelerations: None - Vaginal Exam/OB Vaginal Bleediing: No Speculum Exam: No Dilatation (cm): full Effacement (%): 100 Amniotic Membrane Status: Bulging Presentation: Vertex/Position Station: 0 - Physical Exam Musculoskeletal: Yes: WNL Extremities: Yes: WNL Edema: LLE: Trace, RLE: Trace Deep Tendon Reflex Grade: Normal +2 Psychiatric: Yes: WNL Hemorrhage Risk Assessment - Risk Factors Medium Risk Factors: Yes: None High Risk Factors: Yes: None Risk Score: 1 Risk Level: Medium Risk Problem List - Problems (1) with 37 weeks completed gestation Code(s): Z3A.37 - 37 WEEKS GESTATION OF (2) Labor established Code(s): HNE3866 - (3) Labor established Code(s): SZF8262 - Assessment/Plan plan admit for vaginal delivery
[2019-06-26] MEDS ORDERED: ELECTROLYTE-148 SOLN 1,000 ML IV SCH (09:00)
[2019-06-26] MEDS ORDERED: OXYTOCIN 20 UNITS in 0.9% NS 20 UNIT/1,000 ML INFUS.BAG IV SCH (09:00)
[2019-06-26] MEDS: ACETAMINOPHEN 325 MG TABLET (FP) PO PRN (09:15)
[2019-06-26] MEDS: IBUPROFEN 600 MG TABLET (FP) PO PRN (09:15)
[2019-06-26 09:30] LABS: BASO % 0.5 % (0-2.0); EOS % 1.3 % (0-4.5); HEMOGLOBIN 9.8 GM/dL (10.7-15.3); LYMPH % 23.2 % (8-40); MCH 26.4 pg (25.7-33.7); MCHC 33.7 g/dl (32.0-36.0); MEAN CELL VOLUME 78.5 fl (80-96); MEAN PLT VOLUME 8.3 fl (7.5-11.1); MONO % 9.3 % (3.8-10.2); NEUT % 65.7 % (42.8-82.8); PLATELET COUNT 213 K/MM3 (134-434); RBC 3.69 M/mm3 (3.60-5.2); RDW 15.5 % (11.6-15.6); WHITE BLOOD COUNT 8.1 K/mm3 (4.0-10.0)
[2019-06-26 09:49] LABS: BLOOD UREA NITROGEN 8.3 mg/dL (7-18); CALCIUM 8.3 mg/dL (8.5-10.1); CREATININE 0.8 mg/dL (0.55-1.3); POTASSIUM 3.8 mmol/L (3.5-5.1)
[2019-06-26 09:52] LABS: INR 0.95 (0.83-1.09); PROTHROMBIN TIME (PATIENT) 11.2 SEC (9.7-13.0)
[2019-06-26 09:55] LABS: ACTIVATED PTT 25.9 SECONDS (25.2-36.5)
[2019-06-26 10:21] LABS: COCAINE, UR NEGATIVE ng/ml (CUTOFF=300); METHADONE, UR NEGATIVE ng/ml (CUTOFF=300); OPIATES, URI NEGATIVE ng/ml (CUTOFF=300); PHENCYCLIDINE,URINE NEGATIVE ng/ml (CUTOFF=25); URINE AMPHETAMINES NEGATIVE ng/ml (CUTOFF=500); URINE BARBITURATES NEGATIVE ng/ml (CUTOFF=200)
[2019-06-26 10:35] LABS: URINE BENZODIAZEPINES NEGATIVE ng/ml (CUTOFF=200)
[2019-06-26 10:58] VITALS: BMI 26.6
[2019-06-27] MEDS: ACETAMINOPHEN 325 MG TABLET (FP) PO PRN ×2 (05:45→17:08)
[2019-06-27] MEDS: IBUPROFEN 600 MG TABLET (FP) PO PRN ×2 (05:46→17:08)
--- NOTE | 2019-06-27 07:42 | PN ---
Progress Note (short form) - Note Progress Note: ppd 1 , s/p , no episiotomt doing well, no excess vaginal bleeding CBC, BMP 06/26/19 08:28 Last Vital Signs Temp Pulse Resp BP Pulse Ox 98.1 F 60 20 123/77 100 06/27/19 06:00 06/27/19 06:00 06/27/19 06:00 06/27/19 06:00 06/26/19 14:40 abdomen soft, no cva uterus firm, non tender lochia mild no calf tenderness plan ambulate, cbc , plan for d/c home in am Problem List - Problems (1) with 37 weeks completed gestation Code(s): Z3A.37 - 37 WEEKS GESTATION OF (2) Labor established Code(s): WLR1105 - (3) Labor established Code(s): NTD1953 -
[2019-06-27 07:44] LABS: BASO % 0.4 % (0-2.0); EOS % 1.8 % (0-4.5); HEMATOCRIT 28.6 % (32.4-45.2); HEMOGLOBIN 9.4 GM/dL (10.7-15.3); LYMPH % 15.5 % (8-40); MCH 26.3 pg (25.7-33.7); MCHC 32.9 g/dl (32.0-36.0); MEAN CELL VOLUME 80.1 fl (80-96); MEAN PLT VOLUME 8.6 fl (7.5-11.1); NEUT % 74.3 % (42.8-82.8); PLATELET COUNT 204 K/MM3 (134-434); RBC 3.57 M/mm3 (3.60-5.2); RDW 15.7 % (11.6-15.6); WHITE BLOOD COUNT 10.3 K/mm3 (4.0-10.0)
[2019-06-27] MEDS ORDERED: SENNOSIDES/DOCUSATE COMBO (SENNA PLUS) TABLET (UD) PO PRN (22:00)
[2019-06-28] MEDS: ACETAMINOPHEN 325 MG TABLET (FP) PO PRN (08:56)
[2019-06-28] MEDS: IBUPROFEN 600 MG TABLET (FP) PO PRN (08:57)
--- NOTE | 2019-06-28 10:44 | DS ---
Physical Exam-DIRECTOR OF IT OPERATIONS Vital Signs: Vital Signs Temperature 99 F 06/27/19 21:36 Pulse Rate 60 06/27/19 21:36 Respiratory Rate 20 06/27/19 21:36 Blood Pressure 130/79 06/27/19 21:36 O2 Sat by Pulse Oximetry (%) 100 06/26/19 14:40 Constitutional: Yes: Well Nourished, No Distress, Calm Eyes: Yes: WNL, Conjunctiva Clear, EOM Intact HENT: Yes: WNL, Atraumatic, Normocephalic Neck: Yes: WNL, Supple, Trachea Midline Cardiovascular: Yes: WNL, Regular Rate and Rhythm Respiratory: Yes: WNL, Regular, CTA Bilaterally Gastrointestinal: Yes: WNL ...Rectal Exam: Yes: WNL Renal/: Yes: WNL ....Post : Yes: Uterus firm, Uterus non-tender, Slight lochia rubra Breast(s): Yes: WNL Musculoskeletal: Yes: WNL Extremities: Yes: WNL Edema: No Integumentary: Yes: WNL Neurological: Yes: WNL, Alert, Oriented ...Motor Strength: WNL Psychiatric: Yes: WNL, Alert, Oriented Labs: CBC, BMP 06/27/19 07:18 06/26/19 08:28 Delivery - Delivery Vaginal Delivery: Spontaneous Type of Anesthesia: None Episiotomy/Laceration: None EBL (cc): 300 Delivery, Single - Stages of Labor Date 1st Stage Initiatied: 06/26/19 Time 1st Stage Initiated: 07:00 Date 2nd Stage Initiated: 06/26/19 Time 2nd Stage Initiated: 08:40 Date of Delivery: 06/26/19 Time of Delivery: 08:46 Time Placenta Delivered: 08:50 Placenta: Yes: Spontaneous - Condition of Digital Content Coordinator/Retail Wireless Associate Present: [place]: Darius Mills Infant Gender: Female Weight: 6 lb 5 oz Position: Left, OA Total Hours ROM (Hrs/Mins): 10mins - 1 Minute Total Score: 9 5 Minutes Total Score: 9 - Feeding Plan Initial Plan: Elected not to breastfeed exclusively throughout hospitalization Discharge Summary Problems reviewed: Yes Reason For Visit: ADMISSION OF LABOR Current Active Problems Labor established (Acute) with 37 weeks completed gestation (Acute) Procedures: Principal: Other Procedures: none Hospital Course: no complication Health Concerns: anemia Plan of Treatment: iron, vit Goals: hb 12, breast feeding for 1 year Condition: Good - Instructions Diet, Activity, Other Instructions: regular diet, no intercourse , follow up [facility] care 4 weeks, if fever, heavy vaginal bleeding ,pain call MD Referrals: Jatin Lizarraga MD [Staff Physician] - Disposition: HOME - Home Medications Comprehensive Discharge Medication List: Ambulatory Orders Vitamins (Sjr) - 1 tab PO DAILY 06/21/19 Ibuprofen [Motrin -] 600 mg PO QID #28 tablet 06/27/19
[2019-06-28] MEDS: guaiFENesin 200 MG/10 ML 10 ML UNIT-DOSE CUPS PO PRN ×2 (11:04→15:40)
[2019-06-28 15:53] VITALS: BP 126/82; PULSE 69; TEMP 98.9
== END 2019-06-28 16:00 | disposition home or self-care (01) | DRG 560 ==
LOC: JLDR 08:13 → J3W 14:45
PROVIDERS: ADMIT Obstetrics & Gynecology; ATTEND Obstetrics & Gynecology
PROC: 10E0XZZ Delivery of Products of Conception, External Approach (ICD-10-PCS; principal; 2019-06-26)
DX: O80 Encounter for full-term uncomplicated delivery (principal); Z3A.37 37 weeks gestation of pregnancy; Z37.0 Single live birth
CPT/HCPCS: 36415; 36600; 59409; 80048; 80307; 82803; 85025; 85610; 85730; 86593; 86850; 86900; 86901; 87389

== ENCOUNTER 2021-03-17 13:08 | Emergency (ER) | payer OTHER ==
[2021-03-17 13:14] VITALS: BP 141/82; PULSE 78; TEMP 98; BMI 31.1
== END 2021-03-17 14:52 | disposition home or self-care (01) ==
LOC: JERFT 13:08
DX: H93.11 Tinnitus, right ear (principal)
CPT/HCPCS: 99281-25

== ENCOUNTER 2025-02-04 21:42 | Emergency (ER) | payer OTHER ==
[2025-02-04 21:52] VITALS: BP 147/105; PULSE 61; RESP 18; TEMP 98.4; BMI 31.6
[2025-02-04 22:47] LABS: ABSOLUTE IMMATURE GRANULOCYTES 0.02 x10^3/uL (0.0-0.031); BASOPHILS # 0.06 x10^3/uL (0.01-0.08); EOSINOPHIL % 1.9 % (0.7-5.8); EOSINOPHILS # 0.17 x10^3/uL (0.04-0.36); MCHC 34.1 g/dl (32.2-35.5); MEAN CELL VOLUME 79.2 fl (79.4-94.8); MEAN PLT VOLUME 10.2 fl (9.4-12.3); MONOCYTE # 0.72 x10^3/uL (0.24-0.86); MONOCYTE % 8.0 % (4.7-12.5); RDW 15.6 % (12.1-16.5)
[2025-02-04 22:54] LABS: URINE APPEARANCE CLEAR; URINE BILIRUBIN NEGATIVE (NEGATIVE); URINE COLOR YELLOW; URINE GLUCOSE (UA) NEGATIVE (NEGATIVE); URINE KETONE NEGATIVE (NEGATIVE); URINE LEUK ESTERASE 1+ (NEGATIVE); URINE NITRITE NEGATIVE (NEGATIVE); URINE PROTEIN NEGATIVE (NEGATIVE); URINE UROBILINOGEN 0.2 mg/dL (0.2-1.0)
[2025-02-04 23:09] LABS: URINE RBC 5.2 /uL (0-23.9); URINE WBC 20.4 /uL (0-25.8)
[2025-02-04 23:10] LABS: EPI CELLS 9.2 /uL (0-25.1); HYALINE CASTS 0.0 /uL (0-3.1); URINE BACTERIA 169.9 /uL (0-1359)
[2025-02-04 23:13] LABS: CO2 25.0 mmol/L (21-32); GLUCOSE,RANDOM 86.0 mg/dL (74-106)
[2025-02-04 23:16] LABS: CREATININE 0.8 mg/dL (0.55-1.3)
[2025-02-07 17:18] LABS: HIV INTERPRETATION NEGATIVE (NEGATIVE)
[2025-02-07 23:09] LABS: HCV DIAGNOSTIC IN-HOUSE W/RFLX NON-REACTIVE (NONREACTIVE)
== END 2025-02-04 23:30 | disposition home or self-care (01) ==
LOC: JER 21:42
DX: I10 Essential (primary) hypertension (principal); Z30.46 Encounter for surveillance of implantable subdermal contraceptive
CPT/HCPCS: 36415; 73060-TC-LT-FY; 80048; 81003; 84703; 85025; 86803; 87389; 93005; 93010; 99285-25